=== PATIENT | male | born 1960 | race Caucasian/White ===

== ENCOUNTER → 2016-07-21 | Day surgery (SDC) | payer OTHER ==
[2015-09-14 07:22] VITALS: BP 122/68
[~2016-07-21] MED LIST: EPIPEN 2-PAK1 MG/ML MR; LISINOPRIL10 MG PO; PREDNISONE20 M1 PO
== END ==
LOC: MSO 09:14
DX: Z12.11 Encounter for screening for malignant neoplasm of colon (principal); K92.1 Melena; D12.5 Benign neoplasm of sigmoid colon; K57.30 Diverticulosis of large intestine without perforation or abscess without bleeding; G47.33 Obstructive sleep apnea (adult) (pediatric)
CPT/HCPCS: 00810; J3010; J7120

== ENCOUNTER → 2016-07-28 | Outpatient (CLI) | payer OTHER ==
[2015-09-14 07:22] VITALS: BP 122/68
== END ==
LOC: RAD 09:42
DX: C18.9 Malignant neoplasm of colon, unspecified (principal); R91.1 Solitary pulmonary nodule; N28.89 Other specified disorders of kidney and ureter; K57.30 Diverticulosis of large intestine without perforation or abscess without bleeding
CPT/HCPCS: Q9967

== ENCOUNTER → 2016-10-02 | Outpatient (CLI) | payer OTHER ==
[2015-09-14 07:22] VITALS: BP 122/68
== END ==
LOC: LAB 16:05
DX: R30.0 Dysuria (principal); N39.0 Urinary tract infection, site not specified

== ENCOUNTER → 2017-03-12 | Outpatient (CLI) | payer SELFPAY ==
[2015-09-14 07:22] VITALS: BP 122/68
== END ==
LOC: RAD 08:40
DX: R91.8 Other nonspecific abnormal finding of lung field (principal); K44.9 Diaphragmatic hernia without obstruction or gangrene; C18.7 Malignant neoplasm of sigmoid colon; C64.1 Malignant neoplasm of right kidney, except renal pelvis
CPT/HCPCS: Q9967

== ENCOUNTER → 2017-04-22 | Outpatient (CLI) | payer SELFPAY ==
[2015-09-14 07:22] VITALS: BP 122/68
[2017-04-22 14:29] LABS: HEMATOCRIT 47.2 % (42.0-52.0); HEMOGLOBIN 15.1 g/dL (13.5-18.0); MEAN PLATELET VOLUME 10.7 fl (7.4-10.4); RED BLOOD COUNT 5.49 M/mm3 (4.20-5.60); RED CELL DISTRIBUTION WIDTH 15.1 % (11.5-14.5); WHITE BLOOD COUNT 10.5 K/mm3 (4.8-10.8)
[2017-04-22 14:35] LABS: BUN/CREATININE RATIO 12.6 (6.0-26.0); CALCIUM 9.3 mg/dL (8.4-10.2)
== END ==
LOC: LAB 14:06
PROVIDERS: Urology
DX: C64.1 Malignant neoplasm of right kidney, except renal pelvis (principal)

== ENCOUNTER → 2017-09-21 | Day surgery (SDC) | payer SELFPAY ==
[2015-09-14 07:22] VITALS: BP 122/68
== END | disposition home or self-care (01) ==
LOC: MSO 07:22
DX: Z48.3 Aftercare following surgery for neoplasm (principal); Z85.038 Personal history of other malignant neoplasm of large intestine; K57.30 Diverticulosis of large intestine without perforation or abscess without bleeding; Z98.0 Intestinal bypass and anastomosis status; G47.33 Obstructive sleep apnea (adult) (pediatric); Z87.891 Personal history of nicotine dependence; I10 Essential (primary) hypertension
CPT/HCPCS: 00812; J2704; J7120

== ENCOUNTER → 2018-08-04 | Outpatient (CLI) | payer SELFPAY ==
[2015-09-14 07:22] VITALS: BP 122/68
[2018-08-04 07:42] LABS: BASO # 0.1 (0.02-0.10); EOS # 0.4 (0.04-0.40); HEMOGLOBIN 16.3 g/dL (13.5-18.0); LYMPH# 3.2 (1.50-4.00); MEAN CELL VOLUME 86 fl (78-100); MEAN CORPUSCULAR HEMOGLOBIN 28 pg (27-31); MEAN CORPUSCULAR HGB CONC 33 g/dL (33-37); MEAN PLATELET VOLUME 11.5 fl (7.4-10.4); MONO # 1.1 (0.20-0.80); PLATELET COUNT 260 K/mm3 (130-400); RED BLOOD COUNT 5.82 M/mm3 (4.20-5.60); RED CELL DISTRIBUTION WIDTH 14.9 % (11.5-14.5); WHITE BLOOD COUNT 9.8 K/mm3 (4.8-10.8)
[2018-08-04 07:44] LABS: ALBUMIN 4.2 g/dL (3.5-5.0); CALCIUM 9.7 mg/dL (8.4-10.2); POTASSIUM 3.8 mmol/L (3.5-5.1); TOTAL BILIRUBIN 0.3 mg/dL (0.2-1.2)
== END ==
LOC: LAB 07:09
PROVIDERS: Nurse Practitioner
DX: I10 Essential (primary) hypertension (principal)